=== PATIENT | female | born 1955 | race Caucasian/White ===

== ENCOUNTER 2017-02-02 10:13 | Day surgery (SDC) | payer OTHER ==
[~2017-02-02] VITALS: Ht 160 cm; Wt 114.3 kg
[~2017-02-02 10:13] MED LIST: ADULT LOW DOSE81 MG PO; AMLODIPINE BESYL5 MG PO; CALCIUM600 MG PO; DAILY MULTIPLE1 EACH PO; FISH OIL 1,2001 EAC4 PO; GABAPENTIN600 MG PO; HYDROCODON-ACE1 EA10 PO; LETROZOLE2.5 MG PO; LORAZEPAM1 MG PO; OXYCODON-ACETA1 EAC2 PO; SERTRALINE HCL100 MG PO; STOOL SOFTENER100 M1 PO; TRAMADOL HCL50 MG PO; VITAMIN C1000 MG PO; VITAMIN D31000 UNI1 PO; ZOCOR40 MG PO
--- NOTE | 2017-02-02 15:09 | NUR ---
02/02/17 1508 Tamy Miller 1501-PATIENT ARRIVED TO PACU ON 2L NC O2 SAT 95% PATIENT AWAKE DENIES PAIN OR NAUSEA. ENCOURAGED TO PASS FLATUS. BP ELEVATED TOOK BP MED THIS AM.
--- NOTE | 2017-02-03 09:37 | OR ---
[facility] [address] [place], [place] [address] Signed DATE OF OPERATION: 02/02/2017 SURGEON: Brendon Rordiguez MD PREOPERATIVE DIAGNOSIS: Episodic rectal bleeding. POSTOPERATIVE DIAGNOSES: 1. Internal hemorrhoids. 2. Polyps x3. PROCEDURE: Total colonoscopy to cecum with hot snare polypectomy x2 and cold morcellation polypectomy x1. ANESTHESIA: Intravenous sedation, fentanyl 100 mcg, Versed 7 mg. INDICATION: This 61-year-old morbidly obese white woman, BMI 44.6, is a patient of Stacey Marhsall PA-C, as well as known to me from the past from left breast cancer treatment. She has had episodic rectal bleeding. She has undergone colonoscopy a number of years ago, which was said to be normal. This was last performed in [address] Pfeiffer. She is admitted at this time to undergo colonoscopy on the basis of her bleeding. She understands the risks of bleeding, infection, and perforation. FINDINGS: The prep was excellent. Complete colonoscopy was undertaken of the cecum. There were 3 polyps, none of them appeared worrisome for malignancy in any way, all were excised completely. There were internal hemorrhoidal changes as well. DESCRIPTION OF PROCEDURE: The patient was brought to the endoscopy suite and placed in lateral decubitus position, given intravenous sedation to the point of slurred speech and nystagmus. Digital rectal examination was normal. An Olympus video colonoscope was passed in the rectum and manipulated throughout the colon, ultimately intubating the cecum itself. The ileocecal valve and appendiceal orifice were normal. In the proximal ascending colon, there was a small sessile polyp. This was excised 1st with cold morcellation technique and subsequently hot snare Electronically Signed By: BRENDON RODRIGUEZ MD 02/03/17 0937 PATIENT NAME: ALEXANDRU MARTINEZ OPERATIVE REPORT DATE OF : 51 PHYSICIAN: BRENDON RODRIGUEZ MD REPORT #: [id number] REPORT IS CONFIDENTIAL AND NOT TO BE RELEASED WITHOUT AUTHORIZATION [facility] [address] [place], [place] [address] Signed polypectomy technique. The scope was further withdrawn and no findings were noted until the splenic flexure, where a similar such polyp was noted. Narrow band imaging confirmed the lesion likely to be adenomatous. It was small. It was excised with cold morcellation technique. Further withdrawal of the scope allowed for one other sessile polyp that was relatively small in the rectosigmoid at about 15 cm. This was excised with hot snare polypectomy technique and combination of cold morcellation technique. Further withdrawal of scope allowed for retroflexed view, showing minimal internal hemorrhoidal changes, no sign of large hemorrhoids. The scope was straightened and removed, and the patient was taken to the recovery room in good condition. CONCLUDING DIAGNOSES: Rectal bleeding, probably from hemorrhoids. Incidental finding of 3 polyps, excised. PLAN: She will return to the ongoing care of Stacey Marshall PA-C. We are working still on a consideration of excision of a left breast thickened area from her prior therapy, which bothers her. Imaging studies are still being reviewed. MD TOMI Neves/NEIL /[id number] cc: Stacey Marshall PA-C Electronically Signed By: BRENDON RODRIGUEZ MD 02/03/17 0937 PATIENT NAME: ALEXANDRU MARTINEZ OPERATIVE REPORT DATE OF : 51 PHYSICIAN: BRENDON RODRIGUEZ MD REPORT #: [id number] REPORT IS CONFIDENTIAL AND NOT TO BE RELEASED WITHOUT AUTHORIZATION
== END 2017-02-02 16:15 | disposition home or self-care (01) ==
LOC: OPS 10:13 → DS 14:00 → OPS 14:00
PROVIDERS: Surgery
PROC: 0DBE8ZX Excision of Large Intestine, Via Natural or Artificial Opening Endoscopic, Diagnostic (ICD-10-PCS; 2017-02-02)
PROC: 0DBL8ZX Excision of Transverse Colon, Via Natural or Artificial Opening Endoscopic, Diagnostic (ICD-10-PCS; 2017-02-02)
PROC: 0DBH8ZX Excision of Cecum, Via Natural or Artificial Opening Endoscopic, Diagnostic (ICD-10-PCS; principal; 2017-02-02 14:00)
DX: K64.8 Other hemorrhoids (principal); I10 Essential (primary) hypertension; Z85.3 Personal history of malignant neoplasm of breast; Z90.710 Acquired absence of both cervix and uterus; Z90.12 Acquired absence of left breast and nipple; Z98.890 Other specified postprocedural states; Z79.899 Other long term (current) drug therapy
CPT/HCPCS: 99153; G0500; J0360; J2250; J3010; J7120

== ENCOUNTER 2017-02-07 06:45 | Day surgery (SDC) | payer OTHER ==
[~2017-02-07] VITALS: Ht 160 cm; Wt 114.3 kg
--- NOTE | 2017-02-07 11:08 | NUR ---
PATIENT WAS ADMITTED FOR SURGERY USING PAPER CHARTING D/T [facility] DOWN TIME. PLEASE SEE PAPER RECORD FOR ADMITTING INFORMATION.
--- NOTE | 2017-02-07 11:10 | NUR ---
PT CALLED ASSISTED UP TO THE RESTROOM. PT AMBULATED WITH ASSIST FROM AND RN, TOLERATED WELL. VOID 200 MLS CLEAR YELLOW URINE. ASSISTED BACK TO BED. SCDS AND IVF IN PLACE. CRACKER AND JELLO GIVEN. WARM BLANKET GIVEN. NO FURTHER NEEDS AT THIS TIME. PT RESTING, CALL LIGHT IN PLACE.
--- NOTE | 2017-02-07 12:46 | NUR ---
LE 1230: IN TO SEE PT, VITALS OBTAINED. PT STATES SHE IS READY FOR DISCHARGE, CRITERIA MET. DISCHARGE ORDERS GIVEN, PT SHOW UNDERSTANDING OF INSTRUCTIONS AND EDUCATION. IV DC'D. PT DRESSED WITH MINIMAL HELP. AMBULATED TO , TOLERATED WELL. PT DISCHAGE HOME WITH .
--- NOTE | 2017-02-07 19:42 | OR ---
[facility] [address] [place], [place] [address] Signed DATE OF OPERATION: 02/07/2017 SURGEON: Brendon Rodriguez MD PREOPERATIVE DIAGNOSES: 1. History of left upper outer quadrant breast cancer, status post lumpectomy with radiation therapy. 2. Symptomatic cystic/solid left upper outer quadrant breast tissue. POSTOPERATIVE DIAGNOSES: 1. History of left upper outer quadrant breast cancer, status post lumpectomy with radiation therapy. 2. Symptomatic cystic/solid left upper outer quadrant breast tissue. PROCEDURE: Left partial mastectomy. ANESTHESIA: General LMA, Milton Hooker, PAPER SALES MANAGER and local 10 mL of 0.25% Marcaine with epinephrine. INDICATION: This 61-year-old white woman is a patient of Stacey Marshall PA-C and well known to me from the past having undergone lumpectomy with sentinel lymph node biopsy for stage I breast carcinoma on the left side in September of 2015. She has had an area of thickening and nodular change in the upper outer quadrant on the left, which she says is very symptomatic to her with her bra as well as seat belt and so forth. Imaging studies have shown a normal mammogram without signs of cancer. An ultrasound showing cystic changes and the thickened area on palpation quite obvious. There is no skin retraction or anything to suggest malignancy clinically. She wishes excision on the basis of its symptomatic nature. The risks of bleeding, infection, need for additional treatment to malignancy be incidentally found were all reviewed with her in detail. She understands and wished to proceed. FINDINGS: The tissue was marked prior to operation and wide excision was taken essentially down to the pectoralis fascia. There were indeed areas of scar and cystic change with clear fluid and no clear evidence of malignancy. Wide resection of the nodular thickened tissue was undertaken in the area in question. I believe it will be satisfactory for her going forward. There was some tissue defect as resection was wide. This did not represent a simple small biopsy, but rather partial mastectomy. Electronically Signed By: BRENDON RODRIGUEZ MD 02/07/171941 PATIENT NAME: ALEXANDRU MARTINEZ OPERATIVE REPORT DATE OF : 51 PHYSICIAN: BRENDON RODRIGUEZ MD REPORT #: [id number] REPORT IS CONFIDENTIAL AND NOT TO BE RELEASED WITHOUT AUTHORIZATION [facility] [address] [place], [place] [address] Signed DESCRIPTION OF PROCEDURE: The patient was brought to the operating room and given a general LMA-type anesthetic. Preoperative antibiotic Ancef was given. Sequential compression device stockings used and heparin subcutaneously administered. The left breast area was prepared with chlorhexidine solution and draped sterilely. The area previously marked in the left upper outer quadrant was noted in relation to the areola and previous incision. An incision was made along the line of skin tension. Dissection carried through the dermis sharply and using electrocautery, wide resection was undertaken and the palpable abnormality was well within the confines of resection. Wide and deep resection was undertaken. Her breast configuration was that of a broad flat type breast which would easily tolerate such wide excision. Complete excision was taken down to the pectoralis fascia. The cystic areas were encountered more medially than the area of palpable concern. These were excised in continuity. The specimen excised was quite generous, probably 10 cm x 4 cm x 6 cm. She still had a considerable amount of breast tissue left for cosmetic closure. The parenchyma of the breast was reapproximated with interrupted 2-0 Vicryl obliterating the space and obviating the need for a drain. The dermal layer was reapproximated with interrupted 2-0 Vicryl as well and skin closed with running subcuticular 3-0 Vicryl. Steri-Strips were applied as was Mepilex silver sponge dressing and an OpSite. Blood loss was minimal. Complications none. MD TOMI Neves/CAROLINAL /[id number] cc: Ishmael Merlos MD Electronically Signed By: BRENDON RODRIGUEZ MD 02/07/171941 PATIENT NAME: ALEXANDRU MARTINEZ OPERATIVE REPORT DATE OF : 51 PHYSICIAN: BRENDON RODRIGUEZ MD REPORT #: [id number] REPORT IS CONFIDENTIAL AND NOT TO BE RELEASED WITHOUT AUTHORIZATION [address] [address] Signed Stacey Marshall PA-C Electronically Signed By: BRENDON RODRIGUEZ MD 02/07/171941 PATIENT NAME: ALEXANDRU MARTINEZ OPERATIVE REPORT DATE OF : 51 PHYSICIAN: BRENDON RODRIGUZE MD REPORT #: [id number] REPORT IS CONFIDENTIAL AND NOT TO BE RELEASED WITHOUT AUTHORIZATION
== END 2017-02-07 12:40 | disposition home or self-care (01) ==
LOC: DS 06:45
PROVIDERS: Surgery
PROC: 0HBU0ZZ Excision of Left Breast, Open Approach (ICD-10-PCS; principal; 2017-02-07 08:30)
DX: N60.02 Solitary cyst of left breast (principal); N60.32 Fibrosclerosis of left breast; E66.9 Obesity, unspecified; I10 Essential (primary) hypertension; Z79.899 Other long term (current) drug therapy; Z90.710 Acquired absence of both cervix and uterus; Z98.890 Other specified postprocedural states; Z68.41 Body mass index [BMI] 40.0-44.9, adult
CPT/HCPCS: 00404; J0690; J1644; J2405; J2704; J2765; J3010; J7120

== ENCOUNTER 2018-05-01 09:29 | Day surgery (SDC) | payer MEDICARE ==
[~2018-05-01] VITALS: Ht 160 cm; Wt 117.5 kg
[~2018-05-01 09:29] MED LIST changes: +ASPIR 8181 MG PO; +KLOR-CON 1010 MEQ PO; +LASIX20 MG PO; +VITAMIN D1000 UNIT PO; +ZOLOFT100 MG PO
[2018-05-01] MEDS ORDERED: ATORVASTATIN CA40 MG PO (10:00)
[2018-05-01] MEDS ORDERED: HYDROCHLOROTH12.5 MG PO (10:01)
[2018-05-01] MEDS ORDERED: ADVIL PM CAPLE1 EACH PO (10:02)
[2018-05-01] MEDS ORDERED: MELATONIN1 M2 PO (10:02)
--- NOTE | 2018-05-01 13:11 | NUR ---
05/01/18 1311 Tamy Miller 1305-PATIENT ARRIVED TO PACU ON 2L NC DROWSY AWAKE DENIES PAIN OR NAUSEA. ABDOMEN ROUND AND SOFT ENCOURAGED TO PASS GAS. BP ELEVATED PATIENT REPORTED TOOK MEDICATION THIS AM. PATIENT REPOSITIONS SELF TO BACK AND HOB ELEVATED
--- NOTE | 2018-05-02 08:01 | OR ---
[facility] [address] [place], [place] [address] Signed DATE OF OPERATION: 05/01/2018 SURGEON: Brendon Rodriguez MD PREOPERATIVE DIAGNOSES: 1. Hemoccult-positive stools x2. 2. Reflux symptoms, episodic. 3. History of tubular adenoma in 2017. POSTOPERATIVE DIAGNOSES: 1. Small hiatal hernia. No sign of ulcer or bleeding source. 2. 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 3. Diverticular changes of sigmoid and left colon. 4. Polyps x3. 5. Internal hemorrhoids. PROCEDURE: 1. Esophagogastroduodenoscopy with biopsy. 2. Total colonoscopy to cecum with snare polypectomy x2 and cold morcellation polypectomy x1. ANESTHESIA: Intravenous sedation, fentanyl 200 mcg, and versed 9 mg. INDICATION: This morbidly obese 63-year-old white woman is a patient of Precious Marshall PA-C. She is noted to have Hemoccult-positive stool x2. She underwent colonoscopy in 2017 and has had a tubular adenoma. Additionally, she has some reflux symptoms and notes dysphagia. She is admitted to undergo upper endoscopy and colonoscopy on the basis of heme-positive stools. She understands the risks of bleeding, infection, and perforation related upper endoscopy and colonoscopy and wished to proceed. FINDINGS: On upper endoscopy, there was no lesion to account for bleeding. She did have a small hiatal hernia and possibly mild chronic inflammation, but no Norris's epitheliums and certainly no ulceration or neoplasm elsewhere. CLOtest was negative. The duodenal mucosa appeared normal. There was an anterior commissure somewhat mobile polyp on the vocal cord apparatus. Obviously, this was not interrogated at this time. On colonoscopy, the prep was good. Complete colonoscopy was undertaken to the cecum. Electronically Signed By: BRENDON RODRIGUEZ MD 05/02/18 0801 PATIENT NAME: ALEXANDRU MARTINEZ OPERATIVE REPORT DATE OF : 51 REPORT #: [id number] PHYSICIAN: BRENDON RODRIGUEZ MD PCP: PRECIOUS MARSHALL PAC REPORT IS CONFIDENTIAL AND NOT TO BE RELEASED WITHOUT AUTHORIZATION [facility] [address] [place], [place] [address] Signed She had diverticula of the sigmoid and left colon. There were three polyps in total, all excised completely. PROCEDURE: The patient was brought to the endoscopy suite and given topical Hurricaine spray hypopharyngeal anesthesia and placed in lateral decubitus position. She was given intravenous sedation to the point of slurred speech and nystagmus. A bite block was placed. An Olympus video upper endoscope was passed in the hypopharynx. The vocal cords visualized and there appeared to be some secretions in the anterior commissure and this was discounted at that time and the scope was then passed into the esophagus without problem. Examination of esophagus, stomach, and duodenum was undertaken. The duodenum was reasonably normal. Biopsies were obtained. The scope was withdrawn to the antrum where biopsies taken of the antrum for both MARY and pathologic testing. Retroflex view was undertaken showing a small hiatal hernia. Careful withdrawal of scope to this esophagus showed no sign of Norris's epithelium. There was mild chronic inflammatory change with no stricture. Biopsies were obtained there and the scope was carefully withdrawn. Examination of the hypopharynx was once again undertaken and in the anterior commissure, there was a somewhat pedunculated appearing polyp that was mobile and removed with ventilations. Obviously, it was not excised or biopsied for fear of causing laryngospasm. The scope was then removed. Plans were then made for colonoscopy. The table was rotated and additional sedation given. Digital rectal examination was performed showing no sign of abnormality. The Olympus video colonoscope was passed into the rectum and manipulated throughout the colon ultimately intubating the cecum itself. The ileocecal valve and appendiceal orifice were normal. The scope was withdrawn from that point and examination undertaken showed no sign of abnormality until approximately 60 cm from the anal verge where a polyp was noted. It was rather subtle. Narrow band imaging allowed for better visualization. This was excised with combination of hot snare polypectomy technique and cold morcellation technique. Another small polyp was noted by nearby, which was excised with cold morcellation technique alone. On further withdrawal of scope, identified a polyp at approximately 15 to 20 cm from the anal verge. This was somewhat pedunculated. It was excised with hot snare polypectomy technique and passed for pathology. Retroflexed view confirmed internal hemorrhoidal changes. Scope was removed and the patient was taken to recovery room in good condition. CONCLUDING DIAGNOSES: 1. Hiatal hernia without obvious esophagitis. 2. Anterior commissure polypoid lesion. 3. Diverticular changes of sigmoid and left colon. 4. Polyps x3 (excised). Electronically Signed By: BRENDON RODRIGUEZ MD 05/02/18 0801 PATIENT NAME: ALEXANDRU MARTINEZ OPERATIVE REPORT DATE OF : 51 REPORT #: [id number] PHYSICIAN: BRENDON RODRIGUEZ MD PCP: PRECIOUS MARSHALL PAC REPORT IS CONFIDENTIAL AND NOT TO BE RELEASED WITHOUT AUTHORIZATION [address] [address] Signed PLAN: 1. Consideration for referral to an solutions consultant for evaluation of the anterior commissure polyp should be made. Consideration will be made for Dr. Dykes. No specific therapy was provided regarding the hiatal hernia. She is reasonably asymptomatic currently. 2. Weight loss recommendations. 3. Revisit colonoscopy in 5 years depending on pathology of polyps. MD TOMI Neves/NEIL /[id number] cc: Precious Marshall PA-C Copies: PRECIOUS MARSHALL ~ Electronically Signed By: BRENDON RODRIGUEZ MD 05/02/18 0801 PATIENT NAME: ALEXANDRU MARTINEZ OPERATIVE REPORT DATE OF : 51 REPORT #: [id number] PHYSICIAN: BRENDON RODRIGUEZ MD PCP: PRECIOUS MARSHALL REPORT IS CONFIDENTIAL AND NOT TO BE RELEASED WITHOUT AUTHORIZATION
== END 2018-05-01 14:10 | disposition home or self-care (01) ==
LOC: DS 09:29 → OPS 09:29 → DS 11:00 → OPS 11:00
PROVIDERS: Surgery
PROC: 0DB38ZX Excision of Lower Esophagus, Via Natural or Artificial Opening Endoscopic, Diagnostic (ICD-10-PCS; 2018-05-01)
PROC: 0DBE8ZZ Excision of Large Intestine, Via Natural or Artificial Opening Endoscopic (ICD-10-PCS; 2018-05-01)
PROC: 0DB98ZX Excision of Duodenum, Via Natural or Artificial Opening Endoscopic, Diagnostic (ICD-10-PCS; principal; 2018-05-01 11:00)
PROC: 0DB78ZX Excision of Stomach, Pylorus, Via Natural or Artificial Opening Endoscopic, Diagnostic (ICD-10-PCS; 2018-05-01 11:00)
DX: D12.6 Benign neoplasm of colon, unspecified (principal); K51.40 Inflammatory polyps of colon without complications; K57.30 Diverticulosis of large intestine without perforation or abscess without bleeding; K64.8 Other hemorrhoids; K29.50 Unspecified chronic gastritis without bleeding; K44.9 Diaphragmatic hernia without obstruction or gangrene; J38.1 Polyp of vocal cord and larynx; I10 Essential (primary) hypertension; Z79.899 Other long term (current) drug therapy; Z86.010 Personal history of colon polyps; Z98.890 Other specified postprocedural states
CPT/HCPCS: 99153; G0500; J0360; J2250; J3010; J7120

== ENCOUNTER 2019-03-12 06:55 | Observation (INO) | payer MEDICARE ==
[~2019-03-12] VITALS: Ht 160 cm; Wt 113.4 kg
[~2019-03-12 06:55] MED LIST changes: +ADVIL PM CAPLE1 EACH PO; +ATORVASTATIN CA40 MG PO; +HYDROCHLOROTH12.5 MG PO; +MELATONIN1 M2 PO; +STOOL SOFTENER250 MG PO
--- NOTE | 2019-03-12 11:20 | NUR ---
03/12/19 1120 Tamy Millre 1112-PATIENT ARRIVED TO PACU ON RA 96% RR EVEN. AWAKE DROWSY DENIES PAIN OR NAUSEA. RIGHT LEG DRESSING CDI PLACED ON PILLOW. GOOD CAP REFILL WARMTH AND PALPABLE PEDAL PULSE. SR 1117-PATIENT ON RA O2 SAT 90-93% ENCOURAGED DEEP BREATHING DENIES PAIN OR NAUSEA.
[2019-03-12] MEDS ORDERED: SERTRALINE HCL100 MG PO (11:36)
--- NOTE | 2019-03-12 11:50 | NUR ---
PATIENT ABLE TO WALK TO RESTROOM WITHOUT ANY TROUBLE. 0 C/O PAIN OR NAUSEA.
--- NOTE | 2019-03-12 12:15 | NUR ---
PT ARRIVED TO ROOM 116 AT THIS TIME. ALERT AND ORIENTED, SHE REPORTS HER PAIN IS WELL MANAGED AT THIS TIME. NO NAUSEA. PT ON 2L
--- NOTE | 2019-03-12 12:40 | NUR ---
PT UP TO BEDSIDE COMMODE AT THIS TIME, SHE HAS SIGNIFICANT BLEEDING FROM DISTAL OF KNEE. SATURATED DRESSING AND DRIPPED TO FLOOR, ADDED ABD ON TOP OF BHARGAV WRAP THEN ADDED SECOND BHARGAV TO APPLY PRESSURE TO SITE WILL REASSESS.
--- NOTE | 2019-03-12 12:47 | NUR ---
RE-ENFORCEMENT DRESSING FOR COMPRESSION REMOVED NOW, DOES NOT APPEAR TO CONTINUE TO BLEED AT THIS TIME AT OUTSIDE OF DRESSING
--- NOTE | 2019-03-12 13:37 | NUR ---
DRESSING DRAINAGE OUTLINED ON, NO NEW DRAINAGE AT THIS TIME.
--- NOTE | 2019-03-12 14:38 | NUR ---
INTO ASSESS PT AND DISCUSS PLAN OF CARE.
--- NOTE | 2019-03-12 14:46 | OR ---
[facility] [address] [place], [place] [address] Signed DATE OF OPERATION: 03/12/2019 SURGEON: Brendon Rodriguez MD PREOPERATIVE DIAGNOSES: 1. Medically refractory painful right lower extremity recurrent varicose veins (dominantly greater saphenous distribution). 2. Obesity. POSTOPERATIVE DIAGNOSES: 1. Medically refractory painful right lower extremity recurrent varicose veins (dominantly greater saphenous distribution). 2. Obesity. PROCEDURE: Excision of right lower extremity varicose veins by stab technique including subfascial ligation of perforators. ANESTHESIA: General (John Lara, FERRYBOAT HELPER) and local 19 mL of 0.25% Marcaine with epinephrine. INDICATION: This 63-year-old white woman is a patient of Santa Jones PA-C, in [place] as well as Dr. Marla Mittal. She is known to have had breast cancer in the past. She presented with painful extensive right greater saphenous vein varicosities. She has undergone varicose vein excision in the past on the right side as well. Examination shows impressive serpiginous, very dilated and symptomatic varicose veins extending from the right mid thigh distalward beyond the knee and to the calf area. Previous incisions from prior intervention are noted as well. She has no evidence clinically of edema. No ultrasonographic evidence of deep system occlusion or thrombosis. Attempts at nonsurgical therapy had been undertaken including support stockings and so forth, which have been ineffective in controlling her symptoms. She is admitted at this time to undergo excision of varicose veins by stab technique as well as subfascial ligation of perforators as appropriate. The risks of bleeding, infection, recurrent varicose vein development, failure to cure her symptoms of pain, and of course, complications related to surgery including deep venous thrombosis were all reviewed in detail. She understands and wished to proceed. Electronically Signed By: BRENDON RODRIGUEZ MD 03/12/19 1446 PATIENT NAME: ALEXANDRU MARTINEZ OPERATIVE REPORT DATE OF : 51 REPORT #: [id number] PHYSICIAN: BRENDON RODRIGUEZ MD PCP: SANTA JONES PA-C REPORT IS CONFIDENTIAL AND NOT TO BE RELEASED WITHOUT AUTHORIZATION [facility] [address] [place], [place] [address] Signed FINDINGS: The extensive varicosities were well defined with a marker while in the upright position in the Day Surgery area. Surgical intervention was undertaken showing markedly dilated veins, which were excised and ligated primarily with Vicryl ties. Extensive dissection was undertaken and approximately 26 stab incisions were made through the course of the dissection. It is believed that significant impact on the varicose vein problem has been accomplished. DESCRIPTION OF PROCEDURE: The patient was brought to the operating room and given a general anesthetic. The previously marked varicose veins were additionally marked with a more durable marking pen. The right lower extremity was prepared with a DuraPrep solution with all due care. Preoperative antibiotic Ancef was given. Sequential compression device stocking used on the contralateral (left) leg. After sterile draping, dissection was begun in the proximal right foot medial thigh. Transverse incisions were made over the areas of marking for veins and the large and dilated varicose veins were freed from the surrounding soft tissue, elevated with mosquito type hemostats and sequentially dissected free proximally and distally. When the complete extent of dissection was accomplished, the vein was clamped and incision corresponding nearby was then made with similar dissection technique. Quite extensive dissection was undertaken allowing for excision of the venous segments. Perforating segments in the medial thigh, not far above the knee and in the mid thigh and also in the right calf were identified and secured with subfascial ligation as well. Ultimately, approximately 26 such stab incisions had been made through the leg. There was attendant venous bleeding from time to time, which was controlled with hemostats, occlusion and additional ligation. In aggregate, less than 100 mL of blood was lost, I believe. The skin was then closed with interrupted 3-0 Vicryl. Steri-Strips were applied as was a Kerlix dressing and several Froy wraps. The leg was placed in the somewhat elevated position. She was then allowed to emerge from anesthesia and taken to recovery room in good condition. Sponge, needle, and instrument counts were reported as correct x3. MD TOMI Neves/MODL /[id number] Electronically Signed By: BRENDON RODRIGUEZ MD 03/12/19 1446 PATIENT NAME: ALEXANDRU MARTINEZ OPERATIVE REPORT DATE OF : 51 REPORT #: [id number] PHYSICIAN: BRENDON RODRIGUEZ MD PCP: SANTA JONES PA-C REPORT IS CONFIDENTIAL AND NOT TO BE RELEASED WITHOUT AUTHORIZATION [facility] [address] [place] [id number] Signed cc: RENA Dejesus MD Copies: MARLA MITTAL MD ~ Electronically Signed By: BRENDON RODRIGUEZ MD 03/12/19 1446 PATIENT NAME: ALEXANDRU MARTINEZ OPERATIVE REPORT DATE OF : 51 REPORT #: [id number] PHYSICIAN: BRENDON RODRIGUEZ MD PCP: SANTA JONES PA-C REPORT IS CONFIDENTIAL AND NOT TO BE RELEASED WITHOUT AUTHORIZATION
--- NOTE | 2019-03-12 16:22 | NUR ---
PT CAME TO THE M/S UNIT AT 1215 FROM PACU, HAS HAD SMALL AMOUNT OF BLEEDING INITIALLY ON FIRST UP TO BEDSIDE COMMODE AFTER SURGERY AT 1230. PRESSURE DRESSING WAS APPLIED FOR 20 MIN. PT BACK INTO BED WITH RIGHT LEG ELEVATED, BLEEDING AREA OUTLINED, NOTIFIED. NO NEW BLEEDING SINCE 1250. TOLERATING REGULAR DIET AND PAIN IS WELL MANAGED AT THIS TIME. ASSESSMENT SHOWS CMS INTACT.
--- NOTE | 2019-03-12 16:52 | NUR ---
PT REPORTS PAIN 9/10, PT ALERT AND ORIENTED. ADMINISTERED 2 TABS NORCO AND 30MG IV TORDOL AT THIS TIME, NO NEW BLEEDING NOTED TO DRESSING AT THIS TIME.
--- NOTE | 2019-03-12 17:06 | NUR ---
PATIENT RESTING IN BED. GRANDDAUGHTER IN ROOM. VITAL SIGNS AND I&O DONE. CALL LIGHT WITHIN REACH. ICE WATER GIVEN. NO OTHER NEEDS AT THIS TIME
--- NOTE | 2019-03-12 19:20 | NUR ---
BEDSIDE REPORT RECEIVED FROM CALEB BALDERRAMA. pt AWAKE, SBA WITH FWW TO BSC FOR VOID AND BACK TO BED. RIGHT LEG ELEVATED. DRAINAGE UNCHANGED ON RIGHT LEG, OUTLINED. pt DENIES ANY NEEDS AT THIS TIME. CPOX IN PLACE SPO2 93% ON RA, HR 82.
--- NOTE | 2019-03-12 21:04 | NUR ---
TELEPHONE ORDER TO MD, REPEATED ORDER BACK FOR SLEEP MEDICATION.
--- NOTE | 2019-03-12 21:32 | NUR ---
pt ASSESSMENT COMPLETE. RIGHT LEG ELEVATED. pt RATES PAIN 10/10. PRN AND SCHEDULED MEDICATIONS ADMINISTERED. STRONG PEDAL PULSES BILATERALLY, 1 + EDEMA BILATERALLY FEET. pt DENIES TOILETING OR ADDITIONAL NEEDS. CALL LIGHT IN REACH. SCDS ON NON-OPERABLE FOOT. DRAINAGE UNCHANGED ON DRESSING FROM START OF SHIFT.
--- NOTE | 2019-03-12 22:57 | NUR ---
CPOX ALARMING. SPO2 <90% ON RA WHILE SLEEPING, 1L OXYGEN BY NC APPLIED. pt RESTING IN BED WITH RIGHT LEG ELEVATED. SCD ON LEFT LEG. DENIES TOILETING NEEDS. CALL LIGHT IN REACH.
--- NOTE | 2019-03-13 01:05 | NUR ---
CALL LIGHT ANSWERED. SBA WITH FWW TO BS FOR VOID AND BACK TO BED. RIGHT LEG ELEVATED, SCD ON LEFT LEG. FEINT PEDAL PULSES BILATERALLY LOWER EXTREMITIES, 1 + EDEMA FEET. DRAINAGE UNCHANGED ON DRESSING. pt RATES PAIN 7-8/10 BILATERALLY FEET. PRN TORADOL AND NORCO ADMINISTERED. CRACKERS AND ICE WATER PROVIDED. CALL LIGHT IN REACH.
--- NOTE | 2019-03-13 03:33 | NUR ---
CALL LIGHT ANSWERED. NEW IVF BAG INFUSING WNL ORDERED. SBA WITH FWW TO BSC FOR VOID AND BACK TO BED. RIGHT LEG ELEVATED. SCD ON LEFT LEG. DRAINAGE UNCHANGED ON DRESSING. pt RATES PAIN 7/10 IN FEET STATES "THAT'S PRETTY CLOSE TO HOW IT NORMALLY FEELS". CALL LIGHT IN REACH. SPO2 WNL ON 1L OXYGEN BY NC, CPOX ON.
--- NOTE | 2019-03-13 05:36 | NUR ---
PRN PAIN MEDICATION ADMINISTERED FOR 6-7/10 PAIN IN RIGHT LEG. "SHARP". ALEXANDREA CRACKER AND ICE WATER PROVIDED. VSS. CALL LIGHT IN REACH. 1L OXYGEN BY NC IN PLACE FOR SLEEP. SPO2 WNL. SCD ON LEFT LEG.
--- NOTE | 2019-03-13 07:00 | NUR ---
BEDSIDE HANDOFF REPORT RECEIVED FROM SPECIAL DAY CLASS TEACHER RN. PT RESTING IN BED, RIGHT LEG ELEVATED ON PILLOWS. LR INFUSING AT 85 ML/HR. O2 SATS 93% ON ROOM AIR, CONTINUOUS PULSE OX IN PLACE. PT DENIES NEEDS AT THIS TIME.
--- NOTE | 2019-03-13 07:52 | NUR ---
PATIENT RESTING IN BED. NIECE IN ROOM. CALL LIGHT WITHIN REACH. NO OTHER NEEDS AT THIS TIME
--- NOTE | 2019-03-13 08:00 | NUR ---
Spoke with Christiano. Plans on discharging home today. Has raised toilet seat, shower chair, and fww walker. Has cleaned her house, shopped, and has precooked meals to eat when they arrive home. Pt. denies needs and plans on discharging on home on discharge.
--- NOTE | 2019-03-13 08:45 | NUR ---
PT RESTING IN BED. PT ON ROOM AIR, LUNG SOUNDS CLEAR. PT RATING PAIN 7-8/10 TO RIGHT LEG. PT ASSISTED TO BSC WITH SBA AND FWW. PT TOLERATING REGUALR DIET, BOWEL TONES ACTIVE, DENIES NAUSEA. CMS INTACT, PT WITH CRHONIC PAIN IN BLE. RIGHT LEG WITH DRESSING FROM FOOT TO THIGH, NO NEW DRAINAGE, RIGHT FOOT WITH SMALL AMOUNT OF SWELLING, CAP REFILL 2 SECONDS. IV INFUSING LR AT 85ML/HR. DISCUSSED PLAN OF CARE, PT DENIES OTHER NEEDS AT THIS TIME.
--- NOTE | 2019-03-13 09:13 | NUR ---
PATIENT RESTING IN BED. BEDBATH DONE. PATIENT USING A CLEAN GOWN. VITAL SIGNS AND I&O DONE. CALL LIGHT WITHIN REACH. NO OTHER NEEDS AT THIS TIME
[2019-03-13] MEDS ORDERED: IBUPROFEN600 MG PO (10:22)
--- NOTE | 2019-03-13 10:46 | NUR ---
CALL LIGHT ANSWERED. PATIENT ASKS FOR PAIN MEDICINE. RN NOTIFIED. NO OTHER NEEDS AT THIS TIME
[2019-03-13] MEDS ORDERED: NORCO 5-325 TA1 EACH PO (12:16)
--- NOTE | 2019-03-13 15:16 | PATH ---
[facility] [address] [facility] [place] [address] Signed SPECIMEN(S): A GREATER SAPHENOUS, TRIBUTARIES SPECIMEN SOURCE: A. GREATER SAPHENOUS, TRIBUTARIES CLINICAL HISTORY: Painful varicose veins FINAL PATHOLOGIC DIAGNOSIS: Greater saphenous vein and tributaries: - Fragments of benign vasculature and soft tissue. JVR:davy:C2NR MICROSCOPIC EXAMINATION: Histologic sections of all submitted blocks are examined by light microscopy. These findings, together with the gross examination, support the pathologic diagnosis. GROSS DESCRIPTION: The specimen, labeled "MA, greater saphenous vein and tributaries," is received in formalin and consists of numerous cylindrical-shaped, pink-benitez tissue fragments that aggregately measure 8.5 x 4.3 x 1.2 cm. Sectioning through the specimen is unremarkable. Floor And Wall Applier Liquid sections are submitted in cassette (A1). JS (under the direct supervision of a pathologist) The Gross Description was prepared using a voice recognition system. The report was reviewed for accuracy; however, sound-alike word errors, addition and/or deletions may occur. If there is any question about this report, please contact Client Services. PERFORMING LABORATORY: The technical component was performed by [email or web address], [address] [place] [id number] ([employer] Product Development Manager: Leora Caban MD; CLIA# [id number]). Professional interpretation was performed by [email or web address], [facility], [address] [place] [address] ([employer] Product Development Manager: Deondre Arce M.D.). Diagnostician: Deondre Arce MD Pathologist Electronically Signed 03/13/2019 PATIENT NAME: ALEXANDRU MARTINEZ PATHOLOGY DATE OF : 51 REPORT #: [id number] PHYSICIAN: [facility] PATHOLOGY PCP: SANTA JONES PA-C REPORT IS CONFIDENTIAL AND NOT TO BE RELEASED WITHOUT AUTHORIZATION [facility] [address] [place] [id number] Signed Copies: ~ PATIENT NAME: ALEXANDRU MARTINEZ PATHOLOGY DATE OF : 51 REPORT #: [id number] PHYSICIAN: IRVINYTE PATHOLOGY PCP: SANTA JONES PA-C REPORT IS CONFIDENTIAL AND NOT TO BE RELEASED WITHOUT AUTHORIZATION
== END 2019-03-13 12:40 | disposition home or self-care (01) ==
LOC: OPS 06:55 → DS 06:55 → OPS 08:00 → MS 11:35 → DS 12:15 → MS 12:15 → OPS 03-13 11:34 → MS 03-13 11:34 → OPS 03-13 11:35 → MS 03-13 11:35 → OPS 03-13 12:40 → MS 03-13 12:40
PROVIDERS: ADMIT Surgery
PROC: 06BP0ZZ Excision of Right Saphenous Vein, Open Approach (ICD-10-PCS; principal; 2019-03-12 08:00)
DX: I83.811 Varicose veins of right lower extremity with pain (principal); I10 Essential (primary) hypertension; K21.9 Gastro-esophageal reflux disease without esophagitis; E66.01 Morbid (severe) obesity due to excess calories; Z79.82 Long term (current) use of aspirin; Z68.42 Body mass index [BMI] 45.0-49.9, adult; Z79.899 Other long term (current) drug therapy; Z85.3 Personal history of malignant neoplasm of breast; Z90.12 Acquired absence of left breast and nipple; Z92.3 Personal history of irradiation; Z87.891 Personal history of nicotine dependence
CPT/HCPCS: 88304; 96372; 96374; 96376; A9270; G0378; J0690; J1100; J1644; J1885; J2250; J2270; J2405; J2704; J3010; J7121

== ENCOUNTER 2021-08-20 06:40 | Day surgery (SDC) | payer MEDICARE ==
[~2021-08-20] VITALS: Ht 160 cm; Wt 106.8 kg
[~2021-08-20 06:40] MED LIST changes: +IBUPROFEN600 MG PO; +NORCO 5-325 TA1 EACH PO
[2021-08-20] MEDS ORDERED: METFORMIN HCL1000 MG PO (07:07)
[2021-08-20] MEDS ORDERED: LANTUS SOL100 UNIT/1 SUB-Q (07:07)
--- NOTE | 2021-08-20 09:40 | NUR ---
08/20/21 0940 Judy Solorzano 0909 PT TO PACU ALERT AND AWAKE, DENIES PAIN OR NAUSEA,
--- NOTE | 2021-08-24 15:11 | PATH ---
[facility] [address] [place], [place] [address] Signed SPECIMEN(S): A COLON POLYP AT 60 CM SPECIMEN(S): B COLON POLYP AT 45 CM SPECIMEN(S): C RECTAL COLON POLYP SPECIMEN SOURCE: A. COLON POLYP AT 60 CM B. COLON POLYP AT 45 CM C. RECTAL COLON POLYP CLINICAL HISTORY: Surveillance colonoscopy, history of colon polyps; colon polyps x 3. FINAL PATHOLOGIC DIAGNOSIS: A. Colon, polyp at 60 cm, polypectomy: - Focal hyperplastic polyp. - Fragments of colonic mucosa with submucosal hemorrhage. - Negative for dysplasia or malignancy. B. Colon, polyp at 45 cm, polypectomy: - Tubular adenoma. - Negative for high-grade dysplasia or malignancy. C. Rectum, polyp, polypectomy: - Fragments of tubular adenoma. - Negative for high-grade dysplasia or malignancy. NAL:cml:C2NR MICROSCOPIC EXAMINATION: Histologic sections of all submitted blocks are examined by light microscopy. These findings, together with the gross examination, support the pathologic diagnosis. GROSS DESCRIPTION: Three specimens are received in three containers, labeled "MA." A. The specimen, labeled "MA, 1," and designated on the requisition "colon polyp at 60 cm," is received in formalin and consists of multiple benitez soft tissue fragments that measure 1.0 x 1.0 x 0.2 cm in greatest dimension. The specimen is entirely submitted in cassette (A1). B. The specimen, labeled "MA, 2," and designated on the requisition "colon polyps at 45 cm," is received in formalin and consists of two benitez soft tissue fragments that measure 0.2-0.3 cm in greatest dimension. The specimen is entirely submitted in cassette (B1). C. The specimen, labeled "MA, 3," and designated on the requisition "rectum," PATIENT NAME: ALEXANDRU MARTINEZ PATHOLOGY DATE OF : 51 REPORT #: [id number] PHYSICIAN: CONRAD PATHOLOGY PCP: SANTA JONES PA-C REPORT IS CONFIDENTIAL AND NOT TO BE RELEASED WITHOUT AUTHORIZATION [facility] [address] [place], [place] [address] Signed is received in formalin and consists of three polypoid, benitez soft tissue fragments that measure 0.3-0.4 cm in greatest dimension. The specimen is entirely submitted in cassette (C1). AT (under the direct supervision of a pathologist) The Gross Description was prepared using a voice recognition system. The report was reviewed for accuracy; however, sound-alike word errors, addition and/or deletions may occur. If there is any question about this report, please contact Client Services. PERFORMING LABORATORY: The technical component was performed by [facility], [address] [place] [id number] (CLIA# [id number]). [facility], [address] [address] (CLIA# [id number]). Diagnostician: Jeanette Burris MD Pathologist Electronically Signed 08/24/2021 Copies: ~ PATIENT NAME: ALEXANDRU MARTINEZ PATHOLOGY DATE OF : 51 REPORT #: [id number] PHYSICIAN: [facility] PATHOLOGY PCP: SANTA JONES PA-C REPORT IS CONFIDENTIAL AND NOT TO BE RELEASED WITHOUT AUTHORIZATION
--- NOTE | 2021-08-24 21:23 | OR ---
[facility] [address] [place], [place] [address] Signed DATE OF OPERATION: 08/20/2021 SURGEON: Brendon Rodriguez MD PREOPERATIVE DIAGNOSIS: History of polyps. POSTOPERATIVE DIAGNOSIS: Polyps x3. PROCEDURE: Total colonoscopy to cecum with cold morcellation polypectomy x1 and snare polypectomy x2. ANESTHESIA: Intravenous sedation, fentanyl 100 mcg and Versed 5 mg. INDICATIONS: This 66-year-old white woman is a patient of . She last underwent colonoscopy in 2019. She has had polyps in the past. She has no symptoms currently. She has no family history of colon cancer. She is admitted to undergo surveillance colonoscopy, understand the risks of bleeding, infection, perforation. FINDINGS: The prep was excellent. Complete colonoscopy was undertaken to the cecum without question. She had three polyps, one at 70 cm, other at 45 cm, and another in the rectum, all were excised completely. DESCRIPTION OF PROCEDURE: The patient was brought to the endoscopy suite and placed in lateral decubitus position given intravenous sedation to the point of slurred speech and nystagmus. Digital rectal examination was normal. An Olympus video colonoscope was passed in the rectum and manipulated throughout the colon ultimately intubating the cecum itself. The ileocecal valve and appendiceal orifice were normal. The scope was withdrawn from that point. Examination throughout showed no sign of abnormality until approximately 70 cm from the anal verge, where a sessile somewhat larger polyp was noted. This was excised initially with cold snare technique, incomplete excision was noted. On that basis, additional hot snare polypectomy technique used to completely detach the polyp. Additional morcellation was Electronically Signed By: BRENDON RODRIGUEZ MD 08/24/21 4107 PATIENT NAME: ALEXANDRU MARTINEZ OPERATIVE REPORT DATE OF : 51 REPORT #: [id number] PHYSICIAN: BRENDON RODRIGUEZ MD PCP: SANTA JONES PA-C REPORT IS CONFIDENTIAL AND NOT TO BE RELEASED WITHOUT AUTHORIZATION [facility] [address] [place], [place] [address] Signed undertaken to fully ablate the polyp. A Broderick Net was used to retrieve the polyp. The scope was re-inserted and then withdrawn and the polypectomy site appeared hemostatic. The scope was withdrawn at 45 cm. A small sessile polyp was noted, this was excised with cold snare technique. Further withdrawal showed another polyp in the low rectum, which was excised with cold morcellation technique. The scope was removed. The patient taken to the recovery room in good condition. CONCLUDING DIAGNOSIS: Polyps x3. PLAN: Recommend repeat colonoscopy in 3-5 years, sooner if symptoms should develop. She will return to the ongoing care of . MD TOMI Neves/CAROLINAL /[id number] Copies: ~ Electronically Signed By: BRENDON RODRIGUEZ MD 08/24/21 2123 PATIENT NAME: ALEXANDRU MARTINEZ OPERATIVE REPORT DATE OF : 51 REPORT #: [id number] PHYSICIAN: BRENDON RODRIGUEZ MD PCP: SANTA JONES PA-C REPORT IS CONFIDENTIAL AND NOT TO BE RELEASED WITHOUT AUTHORIZATION
== END 2021-08-20 09:50 | disposition home or self-care (01) ==
LOC: OPS 06:40 → DS 06:40 → OPS 08:45
PROVIDERS: ATTEND Surgery
PROC: 0DBP8ZX Excision of Rectum, Via Natural or Artificial Opening Endoscopic, Diagnostic (ICD-10-PCS; 2021-08-20)
PROC: 0DBE8ZX Excision of Large Intestine, Via Natural or Artificial Opening Endoscopic, Diagnostic (ICD-10-PCS; principal; 2021-08-20 08:45)
DX: Z12.11 Encounter for screening for malignant neoplasm of colon (principal); D12.8 Benign neoplasm of rectum; K63.5 Polyp of colon; E11.9 Type 2 diabetes mellitus without complications; E78.5 Hyperlipidemia, unspecified; Z79.84 Long term (current) use of oral hypoglycemic drugs; I10 Essential (primary) hypertension
CPT/HCPCS: 99153; G0500; J2250; J3010; J7121

== ENCOUNTER 2023-12-27 08:55 | Day surgery (SDC) | payer MEDICARE ==
[~2023-12-27] VITALS: Ht 160 cm; Wt 82.3 kg
[~2023-12-27 08:55] MED LIST changes: +AMLODIPINE BESY10 MG PO; +CEFAZOLIN SODIUM 2 GM/20 ML SYR IV SCH; +CYMBALTA60 MG PO; +ENOXAPARIN SODIUM 40 MG/0.4 ML SYR SUB-Q SCH; +IBLOOD GLUCOSE TEST STRIP 1 EA TEST VI PRN; +LACTATED RINGER'S 1,000 ML IV SCH; +LANTUS SOL100 UNIT/1 SUB-Q; +LIDOCAINE HCL 1% 5 ML SDV INJ ONE; +METFORMIN HCL1000 MG PO; +NYSTATIN100000 UN1 PO; +OXYBUTYNIN CHLOR5 MG PO; +OZEMPIC1 MG/0.71 SQ; +TRIAMCINOLONE A15 G1 TOP
[2023-12-27 09:38] VITALS: BP 173/89
[2023-12-27] MEDS ORDERED: KETAMINE in NS 50 MG/5 ML SYR ONE (09:58)
[2023-12-27] MEDS ORDERED: fentaNYL citrate 100 MCG/2 ML VIAL ONE ×2 (09:58→10:52)
[2023-12-27] MEDS ORDERED: ACETAMINOPHEN 1,000 MG/100 ML VIAL ONE (09:59)
[2023-12-27] MEDS ORDERED: propofoL 200 MG/20 ML VIAL ONE (09:59)
[2023-12-27] MEDS ORDERED: ondansetron HCL 4 MG/2 ML VIAL ONE ×2 (09:59→12:20)
[2023-12-27] MEDS ORDERED: SODIUM CHLORIDE 0.9% 40 ML IV ONE (09:59)
[2023-12-27] MEDS ORDERED: MAGNESIUM SULFATE 1 GM/2 ML VIAL ONE (09:59)
[2023-12-27] MEDS ORDERED: dexmedeTOMIDine HCl 200 MCG/2 ML VIAL ONE (09:59)
[2023-12-27] MEDS ORDERED: DEXAMETHASONE SOD PHOS 4 MG/ML VIAL ONE (09:59)
[2023-12-27] MEDS ORDERED: ROCURONIUM BROMIDE 50 MG/5 ML SYR ONE (09:59)
[2023-12-27] MEDS ORDERED: LIDOCAINE HCL 2% 5 ML SDV ONE (09:59)
[2023-12-27] MEDS ORDERED: ePHEDrine sulfate 50 MG/ML AMP ONE (11:43)
[2023-12-27] MEDS ORDERED: SUGAMMADEX SODIUM 200 MG/2 ML ML ONE (11:54)
[2023-12-27] MEDS ORDERED: ondansetron HCL 4 MG/2 ML VIAL IV PRN ×2 (12:15→12:30)
[2023-12-27] MEDS ORDERED: fentaNYL citrate 50 MCG/ML SDV IV PRN (12:15)
[2023-12-27] MEDS ORDERED: KETOROLAC TROMETHAMINE 30 MG/ML VIAL IV PRN (12:15)
[2023-12-27] MEDS ORDERED: NALOXONE HCL 0.4 MG SYR IV PRN ×2 (12:15→12:30)
[2023-12-27] MEDS ORDERED: IBLOOD GLUCOSE TEST STRIP 1 EA TEST VI PRN (12:15)
[2023-12-27] MEDS ORDERED: HYDROmorphone HCL 1 MG/ML SYR IV PRN (12:30)
[2023-12-27] MEDS ORDERED: PROCHLORPERAZINE EDISYLATE 10 MG/2 ML VIAL IV PRN (12:30)
[2023-12-27] MEDS ORDERED: HYDROCODONE/ACETA 5/325 TAB PO PRN (12:30)
[2023-12-27 13:30] VITALS: BP 157/84
--- NOTE | 2023-12-27 13:43 | NUR ---
12/27/23 1343 Portia Hay 1214- PT ARRIVES TO THE PACU WITH A NATURAL AIRWAY. PT OPENS EYES AND TALKING WITH RN AT ARRIVAL. PT DENIES PAIN AND NAUSEA. ALL MONITORS PUT IN PLACE. RESP EVEN AND UNLABORED. SURGICAL SITE IS CLEAN DRY AND INTACT WITH GAUZE AND TAPE IN THE RIGHT GROIN. 1220- PT COMPLAINS OF SOME NAUSEA. PT IS GIVEN AN EMESIS BAG AND ALCOHOL WIPE TO HELP WITH NAUSEA. ICE PACK PLACED ON SURGICAL SITE. 1225- ZOFRAN GIVEN, SEE EMAR. 1228- PT COMPLAINS OF 7/10 PAIN. PT IS GIVEN A PILLOW TO SPLINT FOR PAIN MANAGEMENT. 1231- TORADOL GIVEN, SEE EMAR. 1241- 7/10 PAIN AND FENTANYL GIVEN, SEE EMAR. PT IS EDUCATED ON AFFECTS OF PAIN MEDICATION WITH DROWSINESS AND NAUSEA. 1251-5/10 PAIN, THAT IS IMPROVED. 1300- PT COMPLAINS OF MORE NAUSEA. COMPAZINE GIVEN, SEE EMAR. WITH CONTINUED PAIN AT 5/10 THAT IS TOLERABLE. 1318- CONVERSATION WITH PT ABOUT MANAGING NAUSEA. PT WANTS TO TRY SOME CRACKERS AND SPRITE IN DAY SURGERY. PT IS HESITANT ON MORE PAIN MEDICAITON SHE DOES NOT WANT TO FEEL MORE NAUSEA. 1325- PT REMOVED FROM MONITORS. VSS. PT BROUGHT FROM PACU TO DAY SURGERY. PT GIVEN CRACKERS AND SPRITE. INITIAL SET OF VITAL SIGNS OBTAINED. CALEB FROST AT BEDSIDE FOR REPORT WITH PT PRESENT. NO QUESTIONS OR CONCERNS. CARE FOR PT TURNED OVER AT THIS TIME.
--- NOTE | 2023-12-27 13:55 | OR ---
[facility] [address] [place], [place] [address] Signed DATE OF OPERATION: 12/27/2023 SURGEON: Edu Berg MD PREOPERATIVE DIAGNOSIS: Right inguinal hernia. POSTOPERATIVE DIAGNOSIS: Incarcerated right indirect inguinal hernia. PROCEDURES: Right Tre onlay mesh inguinal herniorrhaphy. ESTIMATED BLOOD LOSS: None. FINDINGS: No femoral hernia. INDICATIONS: Alexandru is a 68-year-old obese female, who was having trouble this summer with pain and swelling in the right groin. She was concerned about an inguinal hernia. Based on her body habitus, we could not appreciate an inguinal hernia on physical exam. The ultrasound performed at [facility] indicated a fairly sizable indirect inguinal hernia. That seemed unlikely on physical exam. Therefore we had ordered a CT scan of abdomen and pelvis. There was some concern about a very small femoral hernia. We also know she has had a midline incisional hernia repair and a previous Pfannenstiel incision. In the office, I had reviewed all this with Alexandru in detail. I gave her our brochure on hernias. We discussed the idea of an inguinal hernia. She understands the difference between a primary suture repair and a mesh repair. We reviewed the expected intraop and postop course. There is risk of surgery including, but not limited to bleeding, infection, scarring, change in contour of the skin, damage to nerves, recurrent hernias and chronic pain. She had expressed understanding and wished to proceed. PROCEDURE IN DETAIL: I met with Alexandru and her in the preop area. We all agreed on the right groin and marked that appropriately with a nurse present with us. After this, we took Alexandru into the operating room placed in the supine position under general endotracheal tube anesthesia. She was given preoperative antibiotics along with subcutaneous Lovenox. We Electronically Signed By: EDU BERG MD 12/27/23 0777 PATIENT NAME: ALEXANDRU MARTINEZ OPERATIVE REPORT DATE OF : 51 REPORT #: [id number] PHYSICIAN: EDU BERG MD PCP: SANTA JONES PA-C REPORT IS CONFIDENTIAL AND NOT TO BE RELEASED WITHOUT AUTHORIZATION [facility] [address] [place], [place] [address] Signed used SCDs. She was prepped and draped in the usual sterile fashion. We had placed a Diaz catheter with return of clear yellow urine without difficulty. We utilized a standard oblique incision in the right groin and carried it down through the tissue bluntly and with the cautery. We opened up the external oblique fascia along its length and developed medially laterally. We visualized the nerves and protected it throughout the case. We found the round ligament and followed it from the deep ring down past the pubic tubercle. There was no direct inguinal hernia. We looked carefully at the deep ring and found that she had basically cord lipoma coming through. There was no actual hernia sac. We went ahead and opened up the floor of inguinal canal, we looked down at the femoral canal and Mik's ligament we pushed the preperitoneal fat back and we never could convince ourselves that she had a femoral hernia. After this we closed the floor of the direct space with a running 2-0 PDS suture starting at the pubic tubercle all the way up and over the deep ring. We had amputated the round ligament and the cord lipoma with the help of Pean clamp and 0 Vicryl tie. We did the same distally just to the round ligament just beyond the pubic tubercle. We then used a piece of flat Prolene mesh. We cut it to fit her groin. We placed it into the inguinal canal and we sutured it in place both medially and laterally with a running #1 Prolene suture mindful of her nerves. After this, we injected local anesthetic into the wound. The wound was irrigated and suctioned out until clear. We then brought the external oblique fascia over the repair with a running 2-0 PDS suture. We left her with a small external ring. We then closed the Mary's fascia with a running 3-0 Monocryl suture. The dermis was reapproximated with interrupted 3-0 subcuticular Monocryl sutures. The skin edges were then reapproximated with running 5-0 fast absorbing plain gut suture. Dry gauze and tape were then applied. Diaz catheter was removed without difficulty. She was awakened from her anesthesia, extubated in the OR, and taken to recovery room in stable condition. Edu Berg MD ALB/MODL /[id number] cc: Santa Berg MD Electronically Signed By: EDU BERG MD 12/27/23 1355 PATIENT NAME: ALEXANDRU MARTINEZ OPERATIVE REPORT DATE OF : 51 REPORT #: [id number] PHYSICIAN: EDU BERG MD PCP: SANTA JONES PA-C REPORT IS CONFIDENTIAL AND NOT TO BE RELEASED WITHOUT AUTHORIZATION [address] [place], [place] [address] Signed Copies: EDU BERG MD ~ Electronically Signed By: EDU BERG MD 12/27/23 1355 PATIENT NAME: ALEXANDRU MARTINEZ OPERATIVE REPORT DATE OF : 51 REPORT #: [id number] PHYSICIAN: EDU BERG MD PCP: SANTA JONES PA-C REPORT IS CONFIDENTIAL AND NOT TO BE RELEASED WITHOUT AUTHORIZATION
[2023-12-27] MEDS ORDERED: OXYCODONE HCL10 MG PO (14:22)
[2023-12-27 14:30] VITALS: BP 139/84
--- NOTE | 2023-12-27 14:56 | NUR ---
1330: PATIENT BACK IN DAY SURGERY ROOM FROM PACU. RATES PAIN 4/10. RIGHT GROIN DRESSING CDI. VS CHECKED. IV SITE WNL. SCDs ON. ICE WATER AND CRACKERS PLACED AT BEDSIDE. PATIENT STATES NAUSEA IMPROVING. AT BEDSIDE. CALL LIGHT WITHIN REACH. 1400: PATIENT ASSISTED OOB AND TO BATHROOM. GAIT STEADY. ABLE TO VOID WITHOUT DIFFICULTY. GAIT STEADY BACK TO ROOM. PATIENT GETTING DRESSED. 1405: PATIENT MEDICATED FOR PAIN WITH 1 TAB OF HYDROCODONE. 1430: DISCHARGE INSTRUCTIONS GIVEN TO PATIENT AND . 1438: IV DC'D WNL. TIP INTACT. DRESSING APPLIED. PATIENT DISCHARGED TO HOME VIA WHEELCHAIR WITH .
[2023-12-27] MEDS ORDERED: SEVOFLURANE 250 ML BTL INH ONE (15:46)
== END 2023-12-27 14:43 | disposition home or self-care (01) ==
LOC: DS 08:55
PROVIDERS: ATTEND Colon & Rectal Surgery
PROC: 0YU50JZ Supplement Right Inguinal Region with Synthetic Substitute, Open Approach (ICD-10-PCS; principal; 2023-12-27 10:30)
DX: K40.30 Unilateral inguinal hernia, with obstruction, without gangrene, not specified as recurrent (principal); D17.79 Benign lipomatous neoplasm of other sites; E11.9 Type 2 diabetes mellitus without complications; I10 Essential (primary) hypertension; E78.00 Pure hypercholesterolemia, unspecified; E66.9 Obesity, unspecified; Z68.32 Body mass index [BMI] 32.0-32.9, adult; Z79.4 Long term (current) use of insulin; Z79.899 Other long term (current) drug therapy
CPT/HCPCS: 00830; C1781; J0131; J0690; J0780; J1100; J1650; J1885; J2003; J2405; J2704; J3010; J3475; J3490; J7121